=== PATIENT | female | born 1960 | race Caucasian/White ===

== ENCOUNTER 2016-07-07 15:25 | Emergency (ER) | payer OTHER ==
[~2016-07-07] VITALS: Ht 151.1 cm; Wt 60.9 kg
[2016-07-07 15:30] VITALS: TEMP 36.7; Ht 151.1 cm; Wt 60.9 kg
[2016-07-07] MEDS ORDERED: VALS160T58 PO (15:37)
[2016-07-07] MEDS ORDERED: CALC500C70 PO (15:40)
[2016-07-07] MEDS ORDERED: VITACAP26 PO (15:40)
[2016-07-07] MEDS ORDERED: MULT-506 PO (15:40)
[2016-07-07 16:43] VITALS: BP 164/100; PULSE 89; O2SAT 96
--- NOTE | 2016-07-07 17:09 | EMERGENCY ROOM VISIT NOTE ---
ED Visit Note First contact with patient: 15:35 Chief Complaint: Flulike symptoms. History of Present Illness: Ms. Cole is a 56-year-old white female who ambulates into the ED complaining of flulike symptoms. Patient was sent to the emergency department by [facility] after exposure to multiple patients with influenza. Patient reports over the last 3-5 days she has been having a nonproductive cough and body aches in her back, shoulders and her knees. She reports [facility] is concerned about possible contraction influenza. Associated with the symptoms she does report she has mild exertional dyspnea when climbing stairs. She has not taken any medications for her symptoms prior to arrival at the hospital. Additionally she does report that she had her immunization against influenza this year. She denies fevers, chills, sweats, skin eruptions, skin color changes, hemoptysis, wheezing, orthopnea, chest pain, abdominal pain, nausea, vomiting. Review of Systems: As noted above in history of present illness. 8 body systems were reviewed and found to be negative as noted above. Past Medical History: Hypertension. Current Medications: Diovan, vitamins and calcium. Allergies to Medications: Patient denies. Social History: Patient is currently employed; she feels safe in her home environment denies tobacco and alcohol use. Physical Examination: Vital Signs: Date Time Temp Pulse Resp B/P Pulse Ox O2 Delivery O2 Flow Rate FiO2 07/07/16 15:30 36.7 98 18 173/99 98 Room Air GENERAL: 56-year-old female in no acute distress, nontoxic-appearing, afebrile and hemodynamically stable. NEUROLOGICAL: Awake, alert and oriented to person, place and time. Answering questions appropriately and following commands. Normal gait. Good hand eye coordination. SKIN: Warm, dry and pink. No soft tissue eruptions noted. HEENT: Atraumatic and normocephalic. THORAX: Lungs sounds are clear to auscultation and equal bilaterally with symmetrical chest wall. No wheezing, rales or rhonchi. No increased respiratory effort or rate. ED Course: Patient is assessed as noted above. Laboratory Testing: Test 07/07/16 15:50 Range/Units Influenza Type A Antigen Neg for Influ A NEG Influenza Type B Antigen Neg for Influ B NEG Patient was offered a chest x-ray and refused. Patient was educated about tonight's findings and instructed on her treatment plan; she verbalizes understanding and agreement with this plan. Clinical Impression: Cough. Influenza testing. Disposition: Patient discharged home in stable condition; prior to departure she was reassessed and subjectively reported she was feeling the same. Plan: He may return to work as soon as possible. 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 Follow-up at [facility] as needed.
== END 2016-07-07 16:44 | disposition home or self-care (01) ==
LOC: C.EDB 15:26 → C.EDD 16:44
DX: R05 Cough (principal); I10 Essential (primary) hypertension; Z79.899 Other long term (current) drug therapy

== ENCOUNTER → 2016-07-09 | Outpatient (CLI) | payer OTHER ==
[~2016-07-09] MED LIST: CALC500C70 PO; MULT-506 PO; VALS160T58 PO; VITACAP26 PO
--- NOTE | 2016-07-09 12:39 | MAMMOGRAPHY REPORT ---
UNILATERAL RIGHT DIGITAL DIAGNOSTIC MAMMOGRAM TOMOSYNTHESIS AND TARGETED BILATERAL ULTRASOUND: 017 CLINICAL HISTORY: 56-year-old woman with a history of bilateral subpectoral silicone implants callba ck from screening mammography for a right medial asymmetry. At the time of diagnostic evaluation, s he reported burning and pain throughout her left breast. TECHNIQUE: Spot compression right CC tomosynthesis images with reconstructed CC view were performed in the implant displaced positioning. COMPARISON: Comparison is made to exams dated: 06/19/2016 mammogram - [facility], 12/06/2010 mammogram, and 09/03/2009 mammogram - [facility]. BREAST COMPOSITION: There are scattered areas of fibroglandular density in the right breast. FINDINGS: There is partial effacement of the asymmetry in the medial, middle to anterior right naye st on the spot compression CC view. There is no evidence of persistent mass or persistent principal data architect ural distortion. No other areas of architectural distortion, suspicious mass or clustered microcalc ifications are seen. Further evaluation with ultrasound was performed. Real-time high-resolution sonographic evaluation was performed at the medial right breast. Normal 5 glandular tissue is seen without a discrete solid or cystic mass. The patient also reported diffus e burning and pain throughout the left breast and therefore sonographic evaluation was also performe d in the left breast. There is benign duct ectasia and a few benign anechoic cysts in the periareol ar and subareolar left breast. However, no suspicious solid or cystic mass is identified. No other abnormality is seen to explain the diffuse burning sensation and pain of the left breast. IMPRESSION: ACR BI-RADS CATEGORY 2: BENIGN, TARGETED ULTRASOUND ACR BI-RADS CATEGORY 2: BENIGN 1. Partial effacement of the right medial asymmetry, no suspicious sonographic correlate. This mos t likely represented normal overlapping fibroglandular tissue. No further close follow-up is needed at this time. Recommend follow-up at time of next annual screening mammogram. 2. There is no sonographic abnormality or evidence of malignancy to explain diffuse left breast ferdinand n and burning sensation. No mammographic abnormality was identified on the 06/19/2016 screening [facility] mogram either. Therefore, clinical follow-up is recommended. These results and recommendations were discussed with the patient at the time of the exam. Approximately 10% of breast cancers are not detected with mammography. A negative mammographic repor t should not delay biopsy if a clinically suggestive mass is present. Krissy Du M.D. ay/:07/09/2016 09:48:04 [employer]: Marlin COTTRELL)(Rachael), [facility] letter sent: Normal 1/2 BI-RADS Code: ACR BI-RADS Category 2: Benign Ultrasound BI-RADS: ACR BI-RADS Category 2: Benign
== END | disposition home or self-care (01) ==
LOC: C.MAMM 08:30
PROVIDERS: ATTEND Family Medicine
DX: N64.9 Disorder of breast, unspecified (principal); Z98.82 Breast implant status; N64.4 Mastodynia